=== PATIENT | male | born 1995 | race Caucasian/White ===

== ENCOUNTER 2021-07-28 02:40 | Emergency (ER) | payer SELFPAY ==
[2021-07-28 02:41] VITALS: BP 156/73; PULSE 102; RESP 16; TEMP 36.3; O2SAT 98
--- NOTE | 2021-07-28 03:15 | PC.NURSE ---
RN went to move pt from H3 to 15 due to another pt being present and the patient having paranoid thoughts. PT followed RN outside of 15 and stopped outside the door. Pt states I do not want that room I want a regular room. I am not staying. Pt then walked out of the room ignoring RN when asking it pt would return and have a conversation. ERP made aware.
== END 2021-07-28 03:15 | disposition left against medical advice (07) ==
LOC: ANHED 03:51
DX: F22 Delusional disorders (principal)
CPT/HCPCS: 99199

== ENCOUNTER 2021-07-30 15:05 | Emergency (ER) | payer BC, SELFPAY ==
[2021-07-30 15:15] VITALS: BP 150/80; PULSE 74; RESP 20; TEMP 36.8; O2SAT 99
--- NOTE | 2021-07-30 15:31 | ECG_ITS ---
Measurements Intervals [place] Rate: 105 P: 75 LA: 140 QRS: 58 QRSD: 89 T: 55 QT: 320 QTc: 424 Interpretive Statements SINUS TACHYCARDIA BORDERLINE ECG Electronically Signed On 07-30-2021 15:47:20 CDT by Jabari Zavala D.O.
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
[2021-07-30 15:52] LABS: Basophils Percent Auto 0.4 % (0.2-1.2); Eosinophils Absolute Auto 0.1 K/mm3 (0-0.3); Eosinophils Percent Auto 1.4 % (0-4.4); Hematocrit 45.5 % (42.0-52.0); Hemoglobin 14.5 g/dL (14.0-18.0); Immature Granulocyte Absolute 0.02 K/mm3 (0.00-0.031); Immature Granulocyte Percent A 0.2 % (0-0.5); Lymphocytes Absolute Auto 1.55 K/mm3 (0.9-3.2); Lymphocytes Percent Auto 18.3 % (18.3-44.2); Mean Corpuscular HGB Conc 31.9 g/dl (32-36); Mean Corpuscular Hemoglobin 27.9 pg (26-34); Mean Corpuscular Volume 87.7 fl (80-100); Mean Platelet Volume 9.9 fl (7.4-10.4); Monocytes Absolute Auto 0.8 K/mm3 (0.1-0.6); Monocytes Percent Auto 9.1 % (2.6-8.5); Neutrophils Percent Auto 70.6 % (45.5-73.1); Platelet Count Result 288 k/mm3 (150-375); Red Blood Count 5.19 M/mm3 (4.6-6.20); Red Cell Distribution Width 14.1 % (11.5-14.5); White Blood Count 8.5 K/mm3 (4.5-10.0)
[2021-07-30 16:04] LABS: Acetaminophen < 10 ug/mL (10-30); Ethanol < 10 mg/dL (<10); Salicylate < 1.0 mg/dL (2-20)
[2021-07-30 16:05] LABS: Alanine Aminotransferase 357 U/L (6-50); Albumin Level 4.5 g/dL (3.5-5.1); Alkaline Phosphatase 81 U/L (38-126); Anion Gap 9 mmol/L (8-16); Aspartate Amino Transferase 117 U/L (17-59); Bilirubin,Total 0.5 mg/dL (0.2-1.3); Blood Urea Nitrogen 15 mg/dL (9-20); Carbon Dioxide 30 mmol/L (22-30); Chloride 100 mmol/L (98-107); Estimated CRCL calculation 127 ml/min; Estimated Glomerular Filt Rate > 60; Glucose 94 mg/dL (65-110); Potassium 3.9 mmol/L (3.4-5.0); Sodium 139 mmol/L (137-145)
[2021-07-30 16:53] LABS: Appearance Urine Clear (Clear); Bilirubin Urine Negative (Negative); Blood Urine Negative (Negative); Color Urine Yellow (Yellow); Glucose Urine UA Negative (Negative); Ketones Urine Negative (Negative); Leukocyte Esterase Ur 1+ LEU/UL (Negative); Nitrate Urine Negative (Negative); Protein Urine Negative (Negative); Urobilinogen Urine 0.2 mg/dL (<2.0)
[2021-07-30 16:58] LABS: Mucus Urine Rare /lpf
[2021-07-30 16:59] LABS: Add Urine Microscopic? YES
[2021-07-30 17:10] LABS: Barbiturate Screen Urine Negative (Negative); Benzodiazepines Screen Urine Negative (Negative)
[2021-07-30 17:28] LABS: Cannabinoid Screen Urine Positive (Negative); Cocaine Screen Urine Negative (Negative); Methadone Screen Urine Negative (Negative); Opiate Screen Urine Negative (Negative); Phencyclidine Screen Urine Negative (Negative)
[2021-07-30 17:41] LABS: Amphetamine Screen Urine Positive (Negative)
[2021-07-30 17:53] LABS: SARS-CoV-2 RNA PCR Negative
[2021-07-30 19:18] VITALS: BP 118/78; PULSE 74; RESP 16; TEMP 36.8; O2SAT 100
== END 2021-07-30 19:19 | disposition home or self-care (01) ==
PROVIDERS: Emergency Provider Nurse Practitioner Family
DX: F41.9 Anxiety disorder, unspecified (principal); R00.0 Tachycardia, unspecified
CPT/HCPCS: 36415; 80053; 80307; 81001; 84443; 85025; 87086; 93005; 99284; C9803; U0003; U0005

== ENCOUNTER 2021-10-23 20:02 | Emergency (ER) | payer BC, SELFPAY ==
[2021-10-23 20:06] VITALS: BP 127/75; PULSE 110; RESP 16; TEMP 36.8; O2SAT 100
--- NOTE | 2021-10-23 22:17 | PC.NURSE ---
no answer at triage
== END 2021-10-23 22:17 | disposition left against medical advice (07) ==
LOC: ANHED 22:24
DX: S09.90XA Unspecified injury of head, initial encounter (principal)
CPT/HCPCS: 99199

== ENCOUNTER 2022-05-26 18:20 | Emergency (ER) | payer BC, SELFPAY ==
[2022-05-26 18:27] VITALS: BP 131/81; PULSE 84; RESP 16; TEMP 36.6; O2SAT 100
--- NOTE | 2022-05-26 18:53 | ED.EXTPRO ---
HPI - Extremity Problem General Chief complaint: Extremity Problem,Nontraumatic Stated complaint: rt foot blister Time Seen by Provider: 05/26/22 18:53 Source: patient Mode of arrival: ambulatory Limitations: no limitations History of Present Illness HPI Narrative: 26 y/o male presented for c/o blister to the base of the right great toe for over one week. Started as small blister, as a result of wearing steel-toe boots. He applied a hydrogel bandage and left it on for several days, stating he showered several times and the wet bandage stayed in place. Pulled the bandage off today and the blister was larger, and has drained green drainage today. Denies significant pain, swelling, streaking or fever. Related Data Home Medications Medication Instructions Recorded Confirmed dextroamphetamine-amphetamine 20 20 mg PO DAILY 05/26/22 05/26/22 mg tablet Allergies Allergy/AdvReac Type Severity Reaction Status Date / Time No Known Allergies Allergy Verified 05/26/22 18:56 Review of Systems Review of Systems: CONSTITUTIONAL: Denies body aches, fever, chills, or sweats. EYES: Denies visual changes, redness, or discharge. ENT: Denies rhinorrhea, congestion CARDIOVASCULAR: Denies chest pain, palpitations, or edema. RESPIRATORY: Denies cough or dyspnea. GASTROINTESTINAL: Denies abdominal pain, nausea, vomiting, or diarrhea. SKIN: per HPI MUSCULOSKELETAL: Denies back pain, joint pain, or myalgia. NEUROLOGIC: Denies headache, numbness, tingling, or weakness. [facility] Past Medical History Medical History (Updated 05/26/22 @ 20:25 by Norma Muñiz APRN) ADHD Social History Social History Substance use type: amphetamines, methamphetamine and prescription drug Comments At time of signature, I have reviewed and agree with nursing past medical, surgical, social and family history unless otherwise noted. Please see nursing chart for further information. There is no relevant family history pertinent to the presenting complaint Exam Narrative: GENERAL: Well-appearing HEAD: Normocephalic, atraumatic. EYES: conjunctivae clear, and EOMI. ENT: Mucous membranes moist. Oropharynx without edema, erythema or lesions. NECK: Supple. No lymphadenopathy CHEST: Clear to auscultation. HEART: Regular rate and rhythm. SKIN: Warm, dry. Dorsal surface of right great toe MTP with 2cm diameter ruptured blister, skin mostly intact over site; no active drainage, no induration or streaking NEURO: Alert and oriented x3. Course Course Emergency Course: Patient is aware of diagnosis, understands and agrees to treatment plan. Anticipatory guidance given. Patient agrees to follow-up as directed and is aware of reasons to seek care at the emergency department. Portions of this record may have been created with voice recognition software Level of Care: Express Care Visit Vital Signs Vital signs: Vital Signs Temperature 97.8 F 05/26/22 18:27 Pulse Rate 84 05/26/22 18:27 Respiratory Rate 16 05/26/22 18:27 Blood Pressure 131/81 05/26/22 18:27 Pulse Oximetry 100 05/26/22 18:27 Temperature 97.8 F 05/26/22 18:27 Pulse Rate 84 05/26/22 18:27 Respiratory Rate 16 05/26/22 18:27 Blood Pressure 131/81 05/26/22 18:27 Pulse Oximetry 100 05/26/22 18:27 Reviewed MDM - Extremity (Nontraumatic) MDM Narrative Medical decision making narrative: Discussed wound care. Advised supportive measures and signs/symptoms to go to the ER. Pt is appropriate for outpt treatment and f/u. Differential Diagnosis Differential diagnosis: Likely cellulitis and other (abrasion, avulsion, abscess, blister) Discharge Plan Discharge Clinical Impression: Blister of toe of right foot Qualifiers: Encounter type: initial encounter Qualified Code(s): S90.424A - Blister (nonthermal), right lesser toe(s), initial encounter Patient Disposition: Home, Self-Care Conditi
== END 2022-05-26 19:04 | disposition home or self-care (01) ==
PROVIDERS: Emergency Provider Nurse Practitioner Family
DX: S90.424A Blister (nonthermal), right lesser toe(s), initial encounter (principal); F90.9 Attention-deficit hyperactivity disorder, unspecified type; X58.XXXA Exposure to other specified factors, initial encounter
CPT/HCPCS: 99213; G0463

== ENCOUNTER 2022-06-05 17:04 | Emergency (ER) | payer BC, SELFPAY ==
[2022-06-05 17:43] VITALS: BP 145/86; PULSE 109; RESP 20; TEMP 36.9; O2SAT 100
--- NOTE | 2022-06-05 18:29 | ED.GENADULT ---
HPI - General Adult General Chief complaint: Extremity Injury, Lower Stated complaint: foot infection Time Seen by Provider: 06/05/22 18:07 History of Present Illness HPI narrative: 26-year-old male presented to the emergency department for evaluation of a worsening cellulitis on his right lower extremity. Patient states that 2 weeks ago he had onset of a blister on his foot and had a localized cellulitis. Patient states he has been continuing to work while taking the antibiotics and states that the redness did progress of the foot. Patient reports that the redness on the distal aspect of the foot where the initial blister was on his great toe has improved but patient does have increased erythema on the medial aspect of the left ankle. Patient has completed the prior antibiotics. Patient is afebrile with no associated nausea or vomiting. Patient is nondiabetic and patient is not taking steroids and is not immunocompromised. Related Data Home Medications Medication Instructions Recorded Confirmed dextroamphetamine-amphetamine 20 20 mg PO DAILY 05/26/22 05/26/22 mg tablet Allergies Allergy/AdvReac Type Severity Reaction Status Date / Time No Known Allergies Allergy Verified 06/05/22 18:25 Review of Systems Review of Systems: All systems reviewed & are unremarkable except as noted in HPI and below PMFSH Past Medical History Medical History (Updated 06/05/22 @ 18:33 by Patrick Willams MD) ADHD Social History Social History Substance use type: amphetamines, methamphetamine and prescription drug Exam Narrative: APPEARANCE: Well appearing, no pain, no distress, well-nourished. HEAD: normocephalic, atraumatic. EYES: PERRLA/EOMI, conjunctivae clear. NECK: Supple. No adenopathy, no masses. RESPIRATORY: Airway patent, respirations nonlabored. Clear to auscultation bilaterally, no rales, rhonchi, wheezing. CARDIOVASCULAR: Regular rate and rhythm without murmurs rubs or gallops. ABDOMINAL: Soft, nontender, nondistended, normal bowel sounds MUSCULOSKELETAL: Moves all extremities. Strength/ROM intact, No edema, No calf tenderness. NEURO: Alert. Cranial nerves II through XII intact. Grossly intact SKIN: Erythema of right lower extremity on the medial ankle. Blister over right great toe is healed with no localized erythema Course Course Emergency Course: 27-year-old male with worsening cellulitis. Patient was treated with IV clindamycin in the ED and discharged home with p.o. clindamycin. Patient was advised to rest the ankle for 2 days and patient was also encouraged of close follow-up with his primary care physician. Differential diagnosis does include but is not limited to cellulitis, DVT. Patient has no posterior tenderness of the calf. Low concern for DVT. Vital Signs Vital signs: Vital Signs Temperature 98.4 F 06/05/22 17:43 Pulse Rate 109 H 06/05/22 17:43 Respiratory Rate 20 06/05/22 17:43 Blood Pressure 145/86 H 06/05/22 17:43 Pulse Oximetry 100 06/05/22 17:43 Oxygen Delivery Room Air 06/05/22 17:43 Temperature 98.4 F 06/05/22 17:43 Pulse Rate 87 06/05/22 19:18 Respiratory Rate 16 06/05/22 19:18 Blood Pressure 134/86 06/05/22 19:18 Pulse Oximetry 98 06/05/22 19:18 Oxygen Delivery Room Air 06/05/22 17:43 Medical Decision Making Vital Signs Vital Signs: Vital Signs Temperature 98.4 F 06/05/22 17:43 Pulse Rate 109 H 06/05/22 17:43 Respiratory Rate 20 06/05/22 17:43 Blood Pressure 145/86 H 06/05/22 17:43 Pulse Oximetry 100 06/05/22 17:43 Oxygen Delivery Room Air 06/05/22 17:43 Temperature 98.4 F 06/05/22 17:43 Pulse Rate 87 06/05/22 19:18 Respiratory Rate 16 06/05/22 19:18 Blood Pressure 134/86 06/05/22 19:18 Pulse Oximetry 98 06/05/22 19:18 Oxygen Delivery Room Air 06/05/22 17:43 Discharge Plan Discharge Clinical Impression: Cellulitis Damian
[2022-06-05] MEDS: CLINDAMYCIN 600 MG/D5W 50 ML 600 MG/50 ML PIGGYBACK 100 MG IVPB (18:41)
[2022-06-05 19:18] VITALS: BP 134/86; PULSE 87; RESP 16; O2SAT 98
== END 2022-06-05 19:19 | disposition home or self-care (01) ==
LOC: ANHED 18:40
PROVIDERS: Emergency Provider Emergency Medicine
DX: L03.115 Cellulitis of right lower limb (principal)
CPT/HCPCS: 96365; 99284

== ENCOUNTER 2022-07-07 18:54 | Emergency (ER) | payer BC, SELFPAY ==
--- NOTE | ~2022-07-07 | CT_ITS ---
EXAMINATION: CT facial bones w con DATE: 07/07/2022 20:35 INDICATION: Facial swelling TECHNIQUE: Computed tomography (CT) of the facial bones and maxillofacial region was performed with 7 5 cc of Omnipaque 350 intravenous contrast. The dose-length product (DLP) was 357.58 mGy-cm. Automate d exposure control and iterative reconstruction technique were employed. COMPARISON: None. FINDINGS: There is cellulitis of the left maxillary soft tissues. There is inflammation in the left m asticator space. No abscess is identified. The globes and orbits are normal. There is moderate opacif ication of the left maxillary sinus. The visualized osseous structures are unremarkable. IMPRESSION: 1. Cellulitis of the left maxillary soft tissues and inflammatory change the left manager adult space wi thout definite abscess identified. 2. Sinus disease. Reviewed, dictated and finalized at location F. IMPRESSION: 1. Cellulitis of the left maxillary soft tissues and inflammatory change the le ft manager adult space without definite abscess identified. 2. Sinus disease.
[2022-07-07 19:09] VITALS: BP 138/85; PULSE 113; RESP 18; TEMP 36.4; O2SAT 99
--- NOTE | 2022-07-07 19:24 | ED.DENTAL ---
HPI - Dental/Oral General Chief complaint: Dental/Oral Stated complaint: Tooth infection Time Seen by Provider: 07/07/22 19:13 History of Present Illness HPI Narrative: 26-year-old male here for evaluation of left-sided facial swelling and eye pain x3 days. Patient states he first noticed some left upper dental pain about 3 days ago. He went and saw his dentist yesterday who placed him on Augmentin but patient did not pick these up until 1 hour ago. States that the swelling has gotten worse and that has now spread around his eye. He does have some pain with eye movements. He denies any difficulty seeing, fevers, chills, nausea or vomiting. He is not a diabetic. He has been taking ibuprofen with good relief of his pain. Related Data Home Medications Medication Instructions Recorded Confirmed dextroamphetamine-amphetamine 20 20 mg PO DAILY 05/26/22 05/26/22 mg tablet Allergies Allergy/AdvReac Type Severity Reaction Status Date / Time No Known Allergies Allergy Verified 07/07/22 20:00 Review of Systems Review of Systems: Gen.: Denies fevers or chills Eyes: Denies eye pain or visual change ENT: Reports facial pain Respiratory: Denies shortness of breath or cough CV: Denies chest pain or palpitations GI: Denies abdominal pain nausea, emesis or diarrhea denies burning, urgency, frequency or hematuria Musculoskeletal: Denies back pain or muscle pain Neuro: Denies numbness, tingling, weakness or focal weakness Skin: Denies rash Except as documented, all other systems reviewed and negative PMFSH Past Medical History Medical History ADHD Social History Social History Substance use type: amphetamines, methamphetamine and prescription drug Exam Narrative: APPEARANCE: Well appearing, no pain in distress, well-nourished. Head: Normocephalic and atraumatic. EYES: EOMs intact but he reports pain with EOMs on the left. NOSE: No nasal drainage EARS: External ear normal in appearance THROAT: Poor dentition throughout. NECK: Supple. No adenopathy, no masses. RESPIRATORY: Airway patent, respirations nonlabored. Clear to auscultation bilaterally, no rales, rhonchi, wheezing. CARDIOVASCULAR: Regular rate and rhythm without murmurs, rubs, or gallops. ABDOMINAL: Normoactive bowel sounds. Soft, nontender, nondistended. No rebound tenderness or guarding. MUSCULOSKELETAL: Extremities are warm and well-perfused. Moves all extremities well. No edema. NEURO: Normal speech. No focal neurologic deficits. SKIN: There is a significant amount of soft tissue swelling to the left maxillary region. There is erythema in the preseptal region on the left. PSYCHIATRIC: Normal affect/mood. Course Vital Signs Vital signs: Vital Signs Temperature 97.5 F L 07/07/22 19:09 Pulse Rate 113 H 07/07/22 19:09 Respiratory Rate 18 07/07/22 19:09 Blood Pressure 138/85 07/07/22 19:09 Pulse Oximetry 99 07/07/22 19:09 Oxygen Delivery Room Air 07/07/22 19:09 Temperature 97.5 F L 07/07/22 19:09 Pulse Rate 117 H 07/07/22 22:01 Respiratory Rate 18 07/07/22 22:01 Blood Pressure 151/80 H 07/07/22 22:01 Pulse Oximetry 100 07/07/22 22:01 Oxygen Delivery Room Air 07/07/22 19:09 MDM - Dental/Oral MDM Narrative Medical decision making narrative: 26-year-old male here for evaluation of redness and swelling around his left eye in the setting of a dental infection that developed several days ago. Was given antibiotics by his dentist but did not take them until today. He has evidence of preseptal cellulitis on the left orbit but does report some pain with EOMs. No gross abnormalities to eye. Tachycardic but afebrile. White count is 11.4. Lactic acid is negative. Basic labs otherwise unremarkable. CT scan of the face shows no definitive abscess, normal orbits, only cellulitis around
[2022-07-07] MEDS: CLINDAMYCIN 600 MG/D5W 50 ML 600 MG/50 ML PIGGYBACK 100 MG IVPB (19:52)
[2022-07-07 20:11] LABS: Basophils Percent Auto 0.3 % (0.2-1.2); Eosinophils Absolute Auto 0.3 K/mm3 (0-0.3); Eosinophils Percent Auto 2.4 % (0-4.4); Hematocrit 45.1 % (42.0-52.0); Hemoglobin 14.9 g/dL (14.0-18.0); Immature Granulocyte Absolute 0.03 K/mm3 (0.00-0.031); Immature Granulocyte Percent A 0.3 % (0-0.5); Lymphocytes Absolute Auto 1.92 K/mm3 (0.9-3.2); Lymphocytes Percent Auto 16.8 % (18.3-44.2); Mean Corpuscular Hemoglobin 27.6 pg (26-34); Mean Corpuscular Volume 83.5 fl (80-100); Mean Platelet Volume 10.9 fl (7.4-10.4); Monocytes Absolute Auto 0.5 K/mm3 (0.1-0.6); Monocytes Percent Auto 4.1 % (2.6-8.5); Neutrophils Absolute Auto 8.7 K/mm3 (1.3-6.7); Neutrophils Percent Auto 76.1 % (45.5-73.1); Platelet Count Result 350 k/mm3 (150-375); Red Cell Distribution Width 13.9 % (11.5-14.5); White Blood Count 11.4 K/mm3 (4.5-10.0)
[2022-07-07 20:20] LABS: Anion Gap 8 mmol/L (8-16); Blood Urea Nitrogen 12 mg/dL (9-20); Carbon Dioxide 28 mmol/L (22-30); Chloride 98 mmol/L (98-107); Estimated CRCL calculation 182 ml/min; Estimated Glomerular Filt Rate > 60; Glucose 147 mg/dL (65-110); Lactic Acid Reflex 1.3 mmol/L (0.7-2.0); Sodium 134 mmol/L (137-145)
--- NOTE | 2022-07-07 20:27 | PC.NURSE ---
Pt left ER department for CT scan.
[2022-07-07] MEDS: SODIUM CHLORIDE 0.9% IV 1,000 ML 999 ML IV CONT (20:47)
[2022-07-07 22:01] VITALS: BP 151/80; PULSE 117; RESP 18; O2SAT 100
== END 2022-07-07 22:01 | disposition home or self-care (01) ==
PROVIDERS: Emergency Provider Physician Assistant
DX: L03.213 Periorbital cellulitis (principal); F90.9 Attention-deficit hyperactivity disorder, unspecified type
CPT/HCPCS: 36415; 70487; 80048; 83605; 85025; 87040; 96361; 96365; 99284; J7030; Q9967